=== PATIENT | male | born 1960 | race Caucasian/White ===

== ENCOUNTER 2022-11-13 04:12 | Emergency (ER) | payer OTHER ==
[~2022-11-13] VITALS: Ht 182.9 cm; Wt 68.8 kg
[2022-11-13] MEDS ORDERED: TIOT4MIS3 (04:44)
[2022-11-13] MEDS ORDERED: AMLO5TAB16 PO (04:44)
[2022-11-13] MEDS ORDERED: MOME220A5 (04:44)
[2022-11-13] MEDS ORDERED: PRED5TAB PO (04:44)
[2022-11-13] MEDS ORDERED: GUAI600T45 PO (04:44)
[2022-11-13] MEDS ORDERED: IPRA3AMP31 IH (04:44)
[2022-11-13] MEDS ORDERED: MELO-102 PO (04:44)
[2022-11-13] MEDS ORDERED: ROFL500T7 PO (04:44)
[2022-11-13] MEDS ORDERED: ALBU90AE INH (04:44)
[2022-11-13 04:53] LABS: ALANINE AMINOTRANSFERASE 52 U/L (12-78); ALBUMIN 3.5 G/DL (3.4-5.0); ALBUMIN/GLOBULIN RATIO 1.2 (1.1-1.5); ALKALINE PHOSPHATASE 114 IU/L (46-116); ANION GAP 8 (8-16); ASPARTATE AMINO TRANSFERASE 86 U/L (10-37); BLOOD UREA NITROGEN 18 MG/DL (7-18); BUN/CREATININE RATIO 19.6 (10.0-20.0); CALCIUM 8.8 MG/DL (8.5-10.1); CHLORIDE 106 MMOL/L (99-107); CREATININE 0.92 MG/DL (0.60-1.10); GLUCOSE 116 MG/DL (70-104); POTASSIUM 3.6 MMOL/L (3.5-5.1); SODIUM 142 MMOL/L (135-145); TOTAL PROTEIN 6.4 G/DL (6.4-8.2); eGFR 83 ML/MIN
[2022-11-13] MEDS ORDERED: methylPREDNISolone sod succ 125mg/2ml vial IV ONE (04:55)
[2022-11-13] MEDS ORDERED: ipratropium/albuterol 3ml nebule NEB ONE (04:55)
--- NOTE | 2022-11-13 05:13 | NUR ---
CRITICAL LAB- TROP 85. DR CHAUDHRY NOTIFIED
[2022-11-13 05:15] LABS: BASOPHILS % (AUTO) 0.2 % (0-1); EOSINOPHILS # (AUTO) 0.1 X10'3 (0-0.9); EOSINOPHILS % (AUTO) 0.9 % (0-6); HEMATOCRIT 48.6 % (42.0-52.0); HEMOGLOBIN 16.2 g/dl (14.0-17.9); LYMPHOCYTES # (AUTO) 1.4 X10'3 (1.1-4.8); MEAN CORPUSCULAR HEMOGLOBIN 32.5 PG (27.0-31.0); MEAN CORPUSCULAR HGB CONC 33.3 g/dL (33.0-36.5); MEAN CORPUSCULAR VOLUME 97.7 FL (78-98); MEAN PLATELET VOLUME 9.6 FL (7.4-10.4); MONOCYTES # (AUTO) 1.4 X10'3 (0-0.9); MONOCYTES % (AUTO) 11.1 % (2-12); NEUTROPHILS # (AUTO) 9.7 X10'3 (1.8-7.7); NEUTROPHILS % (AUTO) 76.8 % (42-75); PLATELET COUNT 136 X10'3 (140-440); RED BLOOD COUNT 4.97 X10'6 (4.70-6.10); RED CELL DISTRIBUTION WIDTH 16.2 % (11.5-14.5); WHITE BLOOD COUNT 12.7 X10'3 (4.5-11.0)
[2022-11-13] MEDS ORDERED: albuterol 2.5 MG/3 ML nebule NEB ONE (05:20)
[2022-11-13] MEDS ORDERED: levoFLOXACIN 250mg tablet PO ONE (06:10)
[2022-11-13] MEDS ORDERED: PRED20TA PO (06:13)
[2022-11-13] MEDS ORDERED: LEVO-65 PO (06:13)
[2022-11-13 06:17] VITALS: BP 96/68
== END 2022-11-13 06:19 | disposition home or self-care (01) ==
LOC: ER 04:13
DX: J44.9 Chronic obstructive pulmonary disease, unspecified (principal); J18.9 Pneumonia, unspecified organism; F17.200 Nicotine dependence, unspecified, uncomplicated; I10 Essential (primary) hypertension
CPT/HCPCS: 36415; 71045; 80053; 83880; 84145; 84484; 85025; 93005; 94640; 96374; 99285; J2930

== ENCOUNTER 2023-05-19 07:33 | Inpatient (IN) | payer OTHER ==
[~2023-05-19] VITALS: Ht 185.4 cm; Wt 70.9 kg
[~2023-05-19 07:33] MED LIST: ALBU90AE INH; AMLO5TAB16 PO; GUAI600T45 PO; IPRA3AMP31 IH; MELO-102 PO; MOME220A5; PRED5TAB PO; ROFL500T7 PO; TIOT4MIS3
[2023-05-19 08:02] LABS: BASOPHILS # (AUTO) 0.1 X10'3 (0-0.2); BASOPHILS % (AUTO) 1.1 % (0-1); EOSINOPHILS # (AUTO) 0.2 X10'3 (0-0.9); EOSINOPHILS % (AUTO) 4.1 % (0-6); HEMATOCRIT 52.2 % (42.0-52.0); HEMOGLOBIN 17.6 g/dl (14.0-17.9); LYMPHOCYTES # (AUTO) 2.2 X10'3 (1.1-4.8); LYMPHOCYTES % (AUTO) 35.4 % (21-51); MEAN CORPUSCULAR HEMOGLOBIN 33.1 PG (27.0-31.0); MEAN CORPUSCULAR HGB CONC 33.7 g/dL (33.0-36.5); MEAN CORPUSCULAR VOLUME 98.1 FL (78-98); MEAN PLATELET VOLUME 9.7 FL (7.4-10.4); MONOCYTES # (AUTO) 0.6 X10'3 (0-0.9); MONOCYTES % (AUTO) 9.9 % (2-12); NEUTROPHILS % (AUTO) 49.5 % (42-75); PLATELET COUNT 175 X10'3 (140-440); RED BLOOD COUNT 5.32 X10'6 (4.70-6.10); RED CELL DISTRIBUTION WIDTH 13.9 % (11.5-14.5); WHITE BLOOD COUNT 6.1 X10'3 (4.5-11.0)
[2023-05-19 08:52] LABS: ALANINE AMINOTRANSFERASE 23 U/L (12-78); ALBUMIN 3.6 G/DL (3.4-5.0); ALKALINE PHOSPHATASE 104 IU/L (46-116); ANION GAP 11 (8-16); ASPARTATE AMINO TRANSFERASE 17 U/L (10-37); BILIRUBIN,TOTAL 1.2 MG/DL (0.1-1.0); BLOOD UREA NITROGEN 12 MG/DL (7-18); BUN/CREATININE RATIO 14.5 (10.0-20.0); CALCIUM 8.8 MG/DL (8.5-10.1); CHLORIDE 108 MMOL/L (99-107); CREATININE 0.83 MG/DL (0.60-1.10); GLUCOSE 89 MG/DL (70-104); POTASSIUM 3.8 MMOL/L (3.5-5.1); SODIUM 144 MMOL/L (135-145); TOTAL CARBON DIOXIDE 25.4 MMOL/L (24-32); TOTAL PROTEIN 7.3 G/DL (6.4-8.2); eCRCL 91 ML/MIN; eGFR > 90 ML/MIN
[2023-05-19 08:56] LABS: PRO BRAIN NATRIURETIC PEPTIDE 80 PG/ML (0-125)
[2023-05-19] MEDS ORDERED: normal saline 1000ML IV soln IVB ONE (09:05)
[2023-05-19] MEDS ORDERED: methylPREDNISolone sod succ 125mg/2ml vial IV ONE (09:05)
[2023-05-19] MEDS ORDERED: CefTRIAXone 2gm/D5W 50ml BAG 50 ML IV ONE (09:05)
[2023-05-19] MEDS ORDERED: ipratropium 0.5 MG/2.5ML nebule IH ONE (09:05)
[2023-05-19] MEDS ORDERED: azithromycin/NS 500mg/250ml 250 ML IV ONE (09:12)
[2023-05-19] MEDS: albuterol 2.5 MG/3 ML nebule CONTNEB PRN ×2 (10:02→10:06)
[2023-05-19 10:08] VITALS: PULSE 72; RESP 20; O2SAT 95
[2023-05-19 12:25] LABS: ABG BASE EXCESS -4.2 mmol/L (-2.0-2.0); ABG HCO3 19.6 mmol/L (22.0-26.0); ABG OXYGEN SATURATION 91.5 % (94-97); ABG PCO2 (T) 33.2 mmHg (35.0-48.0); ALLEN'S TEST POSITIVE; FCOHb 3.2 % (0.0-3.9); FHHb 8.2 % (0.0-5.0); FLOW 2 L/min; FMetHb 0.4 % (0.0-1.5); FO2Hb 88.2 % (94-97); MODE NASAL CANNULA; TOTAL HEMOGLOBIN 17.1 G/dl (14.0-17.9)
[2023-05-19] MEDS ORDERED: acetaminophen 650mg rectal suppository RC PRN (18:00)
[2023-05-19] MEDS ORDERED: magnesium 4gm in 100ml NS 100 ML IV PRN (18:00)
[2023-05-19] MEDS ORDERED: diphenhydrAMINE 25mg capsule PO PRN (18:00)
[2023-05-19] MEDS ORDERED: HYDROcodone/acetaminophen 10/325mg tab PO PRN (18:00)
[2023-05-19] MEDS ORDERED: acetaminophen 325mg tablet PO PRN ×2 (18:00)
[2023-05-19] MEDS ORDERED: potassium Cl 20 mEq SR tablet PO PRN ×2 (18:00)
[2023-05-19] MEDS ORDERED: ondansetron/PF 4mg/2ml inj IV PRN (18:00)
[2023-05-19] MEDS ORDERED: magnesium Cl slow-release 64mg tablet PO PRN (18:00)
[2023-05-19] MEDS ORDERED: ipratropium/albuterol 3ml nebule NEB PRN (18:00)
[2023-05-19] MEDS ORDERED: bisacodyl 10mg suppository rectal RC PRN (18:00)
[2023-05-19] MEDS ORDERED: mag hydrox/Alum hydrox/simeth 30ml oral suspension PO PRN (18:00)
[2023-05-19] MEDS ORDERED: HYDROcodone/acetaminophen 5mg/325mg tablet PO PRN (18:00)
[2023-05-19] MEDS ORDERED: morphine 2 MG/ML inj. syringe IV PRN ×2 (18:00)
[2023-05-19] MEDS ORDERED: magnesium 2GM in 50ml NS 50 ML IV PRN (18:00)
[2023-05-19] MEDS ORDERED: potassium Cl 40MEQ/1/2NS 520ml 520 ML IV PRN (18:00)
[2023-05-19] MEDS ORDERED: magnesium hydroxide 30ml (MOM) UD suspension PO PRN (18:00)
[2023-05-19] MEDS ORDERED: PERFLUTREN PROTEIN-A MICROSPHR (Optison) 0.22 MG/ML 3ML VIAL IV ONE (18:00)
[2023-05-19 18:40] LABS: HEMOGLOBIN A1C 5.1 % (4.5-6.2)
[2023-05-19] MEDS: normal saline 1000ml 1,000 ML IV SCH (18:45)
[2023-05-19] MEDS: ipratropium/albuterol 3ml nebule NEB SCH ×2 (18:53→23:01)
[2023-05-19 18:55] VITALS: PULSE 101; RESP 18; O2SAT 96
[2023-05-19 19:00] LABS: BILIRUBIN,URINE NEGATIVE (Neg); COLOR,URINE YELLOW (Yellow); GLUCOSE, URINE NEGATIVE (Neg); KETONES,URINE NEGATIVE (Neg); LEUKOCYTE ESTERASE ,URINE NEGATIVE (Neg); NITRITES, URINE NEGATIVE (Neg); OCCULT BLOOD,URINE NEGATIVE (Neg); PH,URINE 5.5 (4.8-8.0); PROTEIN,URINE NEGATIVE (Neg); UROBILINOGEN,URINE 0.2 E.U/dL (0.2-1.0)
[2023-05-19 19:01] VITALS: PULSE 110; RESP 18
[2023-05-19 19:15] LABS: UA COLLECTION TYPE CLN CATCH MIDSTREAM
[2023-05-19 19:16] LABS: CLARITY,URINE SLIGHTLY CLOUDY (Clear)
[2023-05-19 19:17] LABS: BACTERIA,URINE FEW /HPF (Neg); MUCUS STRANDS NONE SEEN /LPF (Neg); RBC,URINE 0-2 /HPF (0-2); SQUAMOUS EPITHELIAL CELL,UR NONE SEEN /LPF (FEW)
[2023-05-19] MEDS: K and/or MAG REPLACEMENT MC SCH (20:00)
[2023-05-19] MEDS: methylPREDNISolone sod succ 125mg/2ml vial IV SCH (20:25)
[2023-05-19] MEDS: docusate sod 100mg capsule PO SCH (20:25)
[2023-05-19] MEDS: heparin, porcine 5000 units/ml vial SQ SCH (20:26)
[2023-05-19 22:00] VITALS: BP 110/79; PULSE 85; RESP 13; TEMP 99.1; O2SAT 98
[2023-05-19 23:03] VITALS: PULSE 97; RESP 16; O2SAT 91
[2023-05-19 23:08] VITALS: PULSE 100; RESP 18
[2023-05-20] VITALS (21 sets, daily range): BP systolic 109–115; BP diastolic 59–77; PULSE 79–99; RESP 15–22; TEMP 97.2–98.6; O2SAT 90–100
[2023-05-20] MEDS: ipratropium/albuterol 3ml nebule NEB SCH ×6 (03:13→22:50)
[2023-05-20] MEDS: normal saline 1000ml 1,000 ML IV SCH (03:21)
[2023-05-20] MEDS: methylPREDNISolone sod succ 125mg/2ml vial IV SCH ×4 (03:21→20:49)
[2023-05-20] MEDS: CefTRIAXone/D5W-Rocephin 1gm 50 ML IV SCH (07:48)
[2023-05-20] MEDS: K and/or MAG REPLACEMENT MC SCH ×2 (08:00→20:00)
[2023-05-20] MEDS: heparin, porcine 5000 units/ml vial SQ SCH ×2 (08:00→19:50)
[2023-05-20] MEDS: azithromycin 250mg tablet PO SCH (09:14)
[2023-05-20] MEDS: roflumilast 500mcg tablet PO SCH (09:14)
[2023-05-20] MEDS: guaiFENesin ER 600mg tablet PO SCH ×2 (09:15→19:50)
[2023-05-20] MEDS: docusate sod 100mg capsule PO SCH ×2 (09:16→19:49)
[2023-05-20] MEDS: amLODIPine 5mg tablet PO SCH (09:16)
[2023-05-20 09:28] LABS: ALANINE AMINOTRANSFERASE 19 U/L (12-78); ALBUMIN 3.2 G/DL (3.4-5.0); ALKALINE PHOSPHATASE 90 IU/L (46-116); ANION GAP 7 (8-16); ASPARTATE AMINO TRANSFERASE 22 U/L (10-37); BILIRUBIN,TOTAL 1.5 MG/DL (0.1-1.0); BLOOD UREA NITROGEN 17 MG/DL (7-18); BUN/CREATININE RATIO 26.6 (10.0-20.0); CALCIUM 8.8 MG/DL (8.5-10.1); CHLORIDE 105 MMOL/L (99-107); CHOL/HDL RATIO 2.2 (0.00-4.99); CHOLESTEROL 153 MG/DL (0-200); CREATININE 0.64 MG/DL (0.60-1.10); GLUCOSE 150 MG/DL (70-104); HDL CHOLESTEROL 71 MG/DL (35-60); LDL CHOLESTEROL 72 MG/DL (50-100); MAGNESIUM 1.9 MG/DL (1.5-2.4); PHOSPHORUS 2.7 MG/DL (2.3-4.5); POTASSIUM 3.7 MMOL/L (3.5-5.1); SODIUM 138 MMOL/L (135-145); TOTAL CARBON DIOXIDE 26.1 MMOL/L (24-32); TOTAL PROTEIN 6.5 G/DL (6.4-8.2); TRIGLYCERIDES 43 MG/DL (20-135); eCRCL 118 ML/MIN; eGFR > 90 ML/MIN
[2023-05-20 09:30] LABS: BASOPHILS % (AUTO) 0.1 % (0-1); EOSINOPHILS % (AUTO) 0 % (0-6); HEMATOCRIT 47.9 % (42.0-52.0); HEMOGLOBIN 16.2 g/dl (14.0-17.9); LYMPHOCYTES # (AUTO) 0.4 X10'3 (1.1-4.8); LYMPHOCYTES % (AUTO) 5.5 % (21-51); MEAN CORPUSCULAR HGB CONC 33.8 g/dL (33.0-36.5); MEAN CORPUSCULAR VOLUME 97.5 FL (78-98); MONOCYTES # (AUTO) 0.3 X10'3 (0-0.9); MONOCYTES % (AUTO) 3.6 % (2-12); NEUTROPHILS # (AUTO) 7.1 X10'3 (1.8-7.7); NEUTROPHILS % (AUTO) 90.8 % (42-75); PLATELET COUNT 140 X10'3 (140-440); RED BLOOD COUNT 4.91 X10'6 (4.70-6.10); RED CELL DISTRIBUTION WIDTH 13.5 % (11.5-14.5); WHITE BLOOD COUNT 7.8 X10'3 (4.5-11.0)
[2023-05-20] MEDS: nicotine 14mg patch - 24hr TD SCH (12:00)
[2023-05-20] MEDS: lactose-reduced food (Ensure Enlive) - 237ml bottle PO SCH (18:00)
[2023-05-21] VITALS (20 sets, daily range): BP systolic 107–140; BP diastolic 70–84; PULSE 56–110; RESP 12–25; TEMP 97.9–98.2; O2SAT 90–100
[2023-05-21] MEDS: methylPREDNISolone sod succ 125mg/2ml vial IV SCH ×2 (02:06→08:00)
[2023-05-21] MEDS: ipratropium/albuterol 3ml nebule NEB SCH ×6 (03:09→22:53)
[2023-05-21 06:54] LABS: ALANINE AMINOTRANSFERASE 17 U/L (12-78); ALBUMIN 2.9 G/DL (3.4-5.0); ALBUMIN/GLOBULIN RATIO 0.9 (1.1-1.5); ALKALINE PHOSPHATASE 78 IU/L (46-116); ANION GAP 8 (8-16); ASPARTATE AMINO TRANSFERASE 14 U/L (10-37); BILIRUBIN,TOTAL 1.1 MG/DL (0.1-1.0); BLOOD UREA NITROGEN 21 MG/DL (7-18); BUN/CREATININE RATIO 28.4 (10.0-20.0); CALCIUM 8.6 MG/DL (8.5-10.1); CHLORIDE 106 MMOL/L (99-107); CREATININE 0.74 MG/DL (0.60-1.10); GLUCOSE 157 MG/DL (70-104); MAGNESIUM 2.2 MG/DL (1.5-2.4); PHOSPHORUS 3.3 MG/DL (2.3-4.5); POTASSIUM 3.8 MMOL/L (3.5-5.1); SODIUM 139 MMOL/L (135-145); TOTAL CARBON DIOXIDE 24.6 MMOL/L (24-32); eCRCL 102 ML/MIN; eGFR > 90 ML/MIN
[2023-05-21 07:04] LABS: BASOPHILS % (AUTO) 0 % (0-1); EOSINOPHILS % (AUTO) 0 % (0-6); HEMATOCRIT 45.3 % (42.0-52.0); HEMOGLOBIN 15.3 g/dl (14.0-17.9); LYMPHOCYTES # (AUTO) 0.3 X10'3 (1.1-4.8); LYMPHOCYTES % (AUTO) 3.2 % (21-51); MEAN CORPUSCULAR HGB CONC 33.8 g/dL (33.0-36.5); MEAN CORPUSCULAR VOLUME 97.5 FL (78-98); MEAN PLATELET VOLUME 10.3 FL (7.4-10.4); MONOCYTES # (AUTO) 0.3 X10'3 (0-0.9); MONOCYTES % (AUTO) 3.5 % (2-12); NEUTROPHILS % (AUTO) 93.3 % (42-75); PLATELET COUNT 131 X10'3 (140-440); RED BLOOD COUNT 4.65 X10'6 (4.70-6.10); RED CELL DISTRIBUTION WIDTH 13.7 % (11.5-14.5); WHITE BLOOD COUNT 8.5 X10'3 (4.5-11.0)
[2023-05-21] MEDS: guaiFENesin ER 600mg tablet PO SCH ×2 (07:57→20:16)
[2023-05-21] MEDS: roflumilast 500mcg tablet PO SCH (07:57)
[2023-05-21] MEDS: CefTRIAXone/D5W-Rocephin 1gm 50 ML IV SCH (07:58)
[2023-05-21] MEDS: azithromycin 250mg tablet PO SCH (07:58)
[2023-05-21] MEDS: docusate sod 100mg capsule PO SCH ×2 (07:58→20:00)
[2023-05-21] MEDS: K and/or MAG REPLACEMENT MC SCH ×2 (08:00→20:00)
[2023-05-21] MEDS: amLODIPine 5mg tablet PO SCH (08:00)
[2023-05-21] MEDS: nicotine 14mg patch - 24hr TD SCH (08:02)
[2023-05-21] MEDS: heparin, porcine 5000 units/ml vial SQ SCH ×2 (08:04→20:16)
[2023-05-21] MEDS: lactose-reduced food (Ensure Enlive) - 237ml bottle PO SCH ×3 (08:13→18:00)
[2023-05-21] MEDS ORDERED: methylPREDNISolone sod succ/PF 40mg inj. IV SCH (09:00)
[2023-05-21] MEDS: methylPREDNISolone sod succ/PF 40mg inj. IV SCH (16:37)
[2023-05-22] VITALS (18 sets, daily range): BP systolic 95–121; BP diastolic 60–78; PULSE 69–89; RESP 14–18; TEMP 97.4–98.6; O2SAT 93–97
[2023-05-22] MEDS: methylPREDNISolone sod succ/PF 40mg inj. IV SCH ×3 (00:13→16:39)
[2023-05-22] MEDS: ipratropium/albuterol 3ml nebule NEB SCH ×6 (02:59→22:50)
[2023-05-22 06:27] LABS: BASOPHILS % (AUTO) 0.1 % (0-1); EOSINOPHILS % (AUTO) 0 % (0-6); HEMATOCRIT 45.9 % (42.0-52.0); HEMOGLOBIN 15.5 g/dl (14.0-17.9); LYMPHOCYTES # (AUTO) 0.3 X10'3 (1.1-4.8); LYMPHOCYTES % (AUTO) 4.1 % (21-51); MEAN CORPUSCULAR HEMOGLOBIN 33.1 PG (27.0-31.0); MEAN CORPUSCULAR HGB CONC 33.8 g/dL (33.0-36.5); MEAN PLATELET VOLUME 10.1 FL (7.4-10.4); MONOCYTES # (AUTO) 0.5 X10'3 (0-0.9); NEUTROPHILS # (AUTO) 6.7 X10'3 (1.8-7.7); NEUTROPHILS % (AUTO) 89.8 % (42-75); PLATELET COUNT 124 X10'3 (140-440); RED BLOOD COUNT 4.69 X10'6 (4.70-6.10); RED CELL DISTRIBUTION WIDTH 13.7 % (11.5-14.5); WHITE BLOOD COUNT 7.5 X10'3 (4.5-11.0)
[2023-05-22 07:08] LABS: ALANINE AMINOTRANSFERASE 18 U/L (12-78); ALBUMIN 2.9 G/DL (3.4-5.0); ALKALINE PHOSPHATASE 64 IU/L (46-116); ANION GAP 9 (8-16); ASPARTATE AMINO TRANSFERASE 8 U/L (10-37); BILIRUBIN,TOTAL 0.9 MG/DL (0.1-1.0); BLOOD UREA NITROGEN 19 MG/DL (7-18); BUN/CREATININE RATIO 31.1 (10.0-20.0); CALCIUM 8.5 MG/DL (8.5-10.1); CHLORIDE 105 MMOL/L (99-107); CREATININE 0.61 MG/DL (0.60-1.10); GLUCOSE 125 MG/DL (70-104); MAGNESIUM 2.4 MG/DL (1.5-2.4); PHOSPHORUS 3.5 MG/DL (2.3-4.5); POTASSIUM 4.3 MMOL/L (3.5-5.1); SODIUM 138 MMOL/L (135-145); TOTAL PROTEIN 5.8 G/DL (6.4-8.2); eCRCL 124 ML/MIN; eGFR > 90 ML/MIN
[2023-05-22] MEDS: K and/or MAG REPLACEMENT MC SCH ×2 (08:00→19:33)
[2023-05-22] MEDS: docusate sod 100mg capsule PO SCH ×2 (08:26→19:35)
[2023-05-22] MEDS: guaiFENesin ER 600mg tablet PO SCH ×2 (08:27→19:38)
[2023-05-22] MEDS: azithromycin 250mg tablet PO SCH (08:27)
[2023-05-22] MEDS: roflumilast 500mcg tablet PO SCH (08:27)
[2023-05-22] MEDS: heparin, porcine 5000 units/ml vial SQ SCH ×2 (08:28→19:38)
[2023-05-22] MEDS: amLODIPine 5mg tablet PO SCH (08:28)
[2023-05-22] MEDS: CefTRIAXone/D5W-Rocephin 1gm 50 ML IV SCH (08:28)
[2023-05-22] MEDS: nicotine 14mg patch - 24hr TD SCH (08:30)
[2023-05-22] MEDS: lactose-reduced food (Ensure Enlive) - 237ml bottle PO SCH ×3 (08:39→18:00)
[2023-05-22] MEDS ORDERED: PRED10TA23 PO (12:10)
[2023-05-22] MEDS ORDERED: ALBU90AE INH (12:10)
[2023-05-23] VITALS (8 sets, daily range): BP systolic 109–118; BP diastolic 71–75; PULSE 69–88; RESP 16–23; TEMP 97–97.4; O2SAT 96–97
[2023-05-23] MEDS: methylPREDNISolone sod succ/PF 40mg inj. IV SCH (00:27)
[2023-05-23] MEDS: ipratropium/albuterol 3ml nebule NEB SCH ×3 (02:42→10:37)
[2023-05-23 06:28] LABS: BASOPHILS % (AUTO) 0.1 % (0-1); EOSINOPHILS % (AUTO) 0 % (0-6); HEMATOCRIT 47.9 % (42.0-52.0); HEMOGLOBIN 16.1 g/dl (14.0-17.9); LYMPHOCYTES # (AUTO) 0.4 X10'3 (1.1-4.8); LYMPHOCYTES % (AUTO) 5.9 % (21-51); MEAN CORPUSCULAR HEMOGLOBIN 33.2 PG (27.0-31.0); MEAN CORPUSCULAR HGB CONC 33.5 g/dL (33.0-36.5); MEAN CORPUSCULAR VOLUME 98.8 FL (78-98); MEAN PLATELET VOLUME 10.3 FL (7.4-10.4); MONOCYTES # (AUTO) 0.5 X10'3 (0-0.9); MONOCYTES % (AUTO) 7.5 % (2-12); NEUTROPHILS # (AUTO) 5.7 X10'3 (1.8-7.7); NEUTROPHILS % (AUTO) 86.5 % (42-75); PLATELET COUNT 124 X10'3 (140-440); RED BLOOD COUNT 4.85 X10'6 (4.70-6.10); RED CELL DISTRIBUTION WIDTH 13.9 % (11.5-14.5); WHITE BLOOD COUNT 6.6 X10'3 (4.5-11.0)
[2023-05-23 07:03] LABS: ALANINE AMINOTRANSFERASE 27 U/L (12-78); ALKALINE PHOSPHATASE 69 IU/L (46-116); ANION GAP 8 (8-16); ASPARTATE AMINO TRANSFERASE 15 U/L (10-37); BILIRUBIN,TOTAL 0.9 MG/DL (0.1-1.0); BLOOD UREA NITROGEN 19 MG/DL (7-18); BUN/CREATININE RATIO 31.7 (10.0-20.0); CALCIUM 8.7 MG/DL (8.5-10.1); CHLORIDE 103 MMOL/L (99-107); GLUCOSE 123 MG/DL (70-104); MAGNESIUM 2.2 MG/DL (1.5-2.4); PHOSPHORUS 3.9 MG/DL (2.3-4.5); POTASSIUM 4.5 MMOL/L (3.5-5.1); SODIUM 137 MMOL/L (135-145); TOTAL CARBON DIOXIDE 26.5 MMOL/L (24-32); TOTAL PROTEIN 6.1 G/DL (6.4-8.2); eCRCL 126 ML/MIN; eGFR > 90 ML/MIN
[2023-05-23] MEDS: azithromycin 250mg tablet PO SCH (07:53)
[2023-05-23] MEDS: docusate sod 100mg capsule PO SCH (07:53)
[2023-05-23] MEDS: guaiFENesin ER 600mg tablet PO SCH (07:53)
[2023-05-23] MEDS: amLODIPine 5mg tablet PO SCH (07:54)
[2023-05-23] MEDS: roflumilast 500mcg tablet PO SCH (07:54)
[2023-05-23] MEDS: nicotine 14mg patch - 24hr TD SCH (07:55)
[2023-05-23] MEDS: CefTRIAXone/D5W-Rocephin 1gm 50 ML IV SCH (07:55)
[2023-05-23] MEDS: heparin, porcine 5000 units/ml vial SQ SCH (07:59)
[2023-05-23] MEDS ORDERED: methylPREDNISolone sod succ/PF 40mg inj. IV SCH (08:00)
[2023-05-23] MEDS: K and/or MAG REPLACEMENT MC SCH (08:00)
[2023-05-23] MEDS: lactose-reduced food (Ensure Enlive) - 237ml bottle PO SCH ×2 (08:04→13:00)
[2023-05-23] MEDS ORDERED: CEFD300C3 PO (12:03)
[2023-05-23] MEDS ORDERED: LACT1CAP26 PO (12:04)
== END 2023-05-23 13:30 | disposition home or self-care (01) | DRG 189 ==
LOC: ER 07:34 → ED HOLD 13:22 → PCU 3S 22:05
PROVIDERS: ADMIT Family Medicine; ATTEND Family Medicine
DX: J96.21 Acute and chronic respiratory failure with hypoxia (principal); J44.1 Chronic obstructive pulmonary disease with (acute) exacerbation; J44.0 Chronic obstructive pulmonary disease with (acute) lower respiratory infection; E87.20 Acidosis, unspecified; F17.210 Nicotine dependence, cigarettes, uncomplicated; I10 Essential (primary) hypertension; J20.9 Acute bronchitis, unspecified; Z79.899 Other long term (current) drug therapy
CPT/HCPCS: 36415; 36600; 71045; 80053; 80061; 81001; 82803; 83036; 83605; 83735; 83880; 84100; 84484; 85018; 85025; 87040; 87088; 87502; 87503; 93306; 94640; 94760; 97116; 97161; 97530; 99285; A4615; A6250; A7015; G0378; J0456; J0696; J1644; J2920; J2930; J7030

== ENCOUNTER 2023-08-31 15:20 | Emergency (ER) | payer OTHER ==
[~2023-08-31] VITALS: Ht 182.9 cm; Wt 72.7 kg
[~2023-08-31 15:20] MED LIST changes: +LACT1CAP26 PO
[2023-08-31 15:48] LABS: BASOPHILS % (AUTO) 0.2 % (0-1); EOSINOPHILS % (AUTO) 0.2 % (0-6); HEMATOCRIT 53.4 % (42.0-52.0); LYMPHOCYTES # (AUTO) 0.6 X10'3 (1.1-4.8); LYMPHOCYTES % (AUTO) 6.5 % (21-51); MEAN CORPUSCULAR HEMOGLOBIN 33.2 PG (27.0-31.0); MEAN CORPUSCULAR HGB CONC 34.2 g/dL (33.0-36.5); MEAN CORPUSCULAR VOLUME 97.2 FL (78-98); MEAN PLATELET VOLUME 9.8 FL (7.4-10.4); MONOCYTES # (AUTO) 0.4 X10'3 (0-0.9); MONOCYTES % (AUTO) 3.9 % (2-12); NEUTROPHILS # (AUTO) 8.6 X10'3 (1.8-7.7); NEUTROPHILS % (AUTO) 89.2 % (42-75); PLATELET COUNT 168 X10'3 (140-440); RED BLOOD COUNT 5.49 X10'6 (4.70-6.10); RED CELL DISTRIBUTION WIDTH 14.8 % (11.5-14.5); WHITE BLOOD COUNT 9.6 X10'3 (4.5-11.0)
[2023-08-31 15:54] LABS: HEMOGLOBIN 18.2 g/dl (14.0-17.9)
[2023-08-31 15:56] VITALS: TEMP 98.6
[2023-08-31] MEDS: ipratropium/albuterol 3ml nebule NEB ONE (15:56)
[2023-08-31 16:00] VITALS: PULSE 105; RESP 23; O2SAT 92
[2023-08-31] MEDS: methylPREDNISolone sod succ 125mg/2ml vial IV ONE (16:04)
[2023-08-31 16:06] VITALS: PULSE 107; RESP 16; O2SAT 95
[2023-08-31 16:06] LABS: ALANINE AMINOTRANSFERASE 18 U/L (12-78); ALBUMIN 3.9 G/DL (3.4-5.0); ALBUMIN/GLOBULIN RATIO 1.2 (1.1-1.5); ALKALINE PHOSPHATASE 106 IU/L (46-116); ANION GAP 11 (8-16); ASPARTATE AMINO TRANSFERASE 18 U/L (10-37); BILIRUBIN,TOTAL 1.2 MG/DL (0.1-1.0); BLOOD UREA NITROGEN 12 MG/DL (7-18); BUN/CREATININE RATIO 13.3 (10.0-20.0); CHLORIDE 108 MMOL/L (99-107); GLUCOSE 119 MG/DL (70-104); POTASSIUM 4.6 MMOL/L (3.5-5.1); SODIUM 145 MMOL/L (135-145); TOTAL CARBON DIOXIDE 25.9 MMOL/L (24-32); TOTAL PROTEIN 7.1 G/DL (6.4-8.2); eCRCL 86 ML/MIN; eGFR 85 ML/MIN
[2023-08-31] MEDS: magnesium 2GM in 50ml NS 50 ML IV ONE (16:06)
[2023-08-31 16:13] LABS: PRO BRAIN NATRIURETIC PEPTIDE 116 PG/ML (0-125)
[2023-08-31] MEDS ORDERED: PRED20TA PO (20:47)
[2023-08-31] MEDS ORDERED: AZIT-164 PO (20:49)
[2023-08-31 21:11] VITALS: BP 116/86; PULSE 95; RESP 20; O2SAT 94
== END 2023-08-31 21:12 | disposition home or self-care (01) ==
LOC: ER 15:21
DX: R06.02 Shortness of breath (principal); R09.02 Hypoxemia; I10 Essential (primary) hypertension; J44.9 Chronic obstructive pulmonary disease, unspecified; F17.200 Nicotine dependence, unspecified, uncomplicated; Z79.899 Other long term (current) drug therapy; Z79.2 Long term (current) use of antibiotics
CPT/HCPCS: 36415; 71045; 80053; 83880; 84484; 85025; 93005; 94640; 96365; 96375; 99285; J2930; J3475; 94760; 99291; 99292; A4615

== ENCOUNTER 2023-09-28 07:36 | Inpatient (IN) | payer OTHER ==
[2023-09-28] VITALS (17 sets, daily range): BP systolic 113–138; BP diastolic 67–93; PULSE 80–110; RESP 15–22; TEMP 97.5–98.2; O2SAT 89–95
[~2023-09-28] VITALS: Ht 182.9 cm; Wt 72.0 kg
[~2023-09-28 07:36] MED LIST changes: +PRED20TA PO
[2023-09-28 08:01] LABS: BASOPHILS % (AUTO) 0.6 % (0-1); EOSINOPHILS # (AUTO) 0.2 X10'3 (0-0.9); EOSINOPHILS % (AUTO) 3.2 % (0-6); HEMATOCRIT 52.9 % (42.0-52.0); LYMPHOCYTES # (AUTO) 2.3 X10'3 (1.1-4.8); LYMPHOCYTES % (AUTO) 29.9 % (21-51); MEAN CORPUSCULAR HEMOGLOBIN 33.2 PG (27.0-31.0); MEAN CORPUSCULAR HGB CONC 34.1 g/dL (33.0-36.5); MEAN CORPUSCULAR VOLUME 97.4 FL (78-98); MONOCYTES # (AUTO) 0.8 X10'3 (0-0.9); NEUTROPHILS # (AUTO) 4.2 X10'3 (1.8-7.7); NEUTROPHILS % (AUTO) 56.3 % (42-75); PLATELET COUNT 184 X10'3 (140-440); RED BLOOD COUNT 5.44 X10'6 (4.70-6.10); WHITE BLOOD COUNT 7.5 X10'3 (4.5-11.0)
[2023-09-28] MEDS: ipratropium/albuterol 3ml nebule NEB STA (08:18)
[2023-09-28] MEDS: methylPREDNISolone sod succ 125mg/2ml vial IV ONE (08:31)
[2023-09-28] MEDS: normal saline 500ml IV soln 500 ML IV ONE (08:35)
[2023-09-28] MEDS: azithromycin/NS 500mg/250ml 250 ML IV ONE (08:44)
[2023-09-28 08:45] LABS: ALBUMIN 3.6 G/DL (3.4-5.0); ANION GAP 11 (8-16); BLOOD UREA NITROGEN 15 MG/DL (7-18); BUN/CREATININE RATIO 17.2 (10.0-20.0); CALCIUM 8.7 MG/DL (8.5-10.1); CHLORIDE 107 MMOL/L (99-107); CREATININE 0.87 MG/DL (0.60-1.10); GLUCOSE 87 MG/DL (70-104); PRO BRAIN NATRIURETIC PEPTIDE 46 PG/ML (0-125); SODIUM 145 MMOL/L (135-145); TOTAL CARBON DIOXIDE 27.2 MMOL/L (24-32); eCRCL 89 ML/MIN; eGFR 89 ML/MIN
[2023-09-28] MEDS: ipratropium/albuterol 3ml nebule NEB ONE (09:45)
[2023-09-28] MEDS ORDERED: potassium Cl 20 mEq SR tablet PO PRN ×2 (10:10)
[2023-09-28] MEDS ORDERED: magnesium 2GM in 50ml NS 50 ML IV PRN (10:10)
[2023-09-28] MEDS ORDERED: magnesium Cl slow-release 64mg tablet PO PRN (10:10)
[2023-09-28] MEDS ORDERED: ondansetron/PF 4mg/2ml inj IV PRN (10:10)
[2023-09-28] MEDS ORDERED: acetaminophen 325mg tablet PO PRN (10:10)
[2023-09-28] MEDS ORDERED: magnesium hydroxide 30ml (MOM) UD suspension PO PRN (10:10)
[2023-09-28] MEDS ORDERED: magnesium 4gm in 100ml NS 100 ML IV PRN (10:10)
[2023-09-28] MEDS ORDERED: mag hydrox/Alum hydrox/simeth 30ml oral suspension PO PRN (10:10)
[2023-09-28] MEDS ORDERED: potassium Cl 40MEQ/1/2NS 520ml 520 ML IV PRN (10:10)
[2023-09-28] MEDS: nicotine 14mg patch - 24hr TD ONE (12:13)
[2023-09-28] MEDS: albuterol 2.5 MG/3 ML nebule NEB PRN (12:23)
[2023-09-28] MEDS: CefTRIAXone/D5W-Rocephin 1gm 50 ML IV SCH (13:00)
[2023-09-28] MEDS: nystatin 500,000 unit/5ML UD oral suspension PO SCH (13:00)
[2023-09-28] MEDS ORDERED: LORazepam 2 mg/ml vial IV PRN (18:55)
[2023-09-28] MEDS ORDERED: LORazepam 0.5 MG tablet PO PRN (18:55)
[2023-09-28] MEDS: K and/or MAG REPLACEMENT MC SCH (20:00)
[2023-09-28] MEDS: heparin, porcine 5000 units/ml vial SQ SCH (20:42)
[2023-09-28] MEDS: guaiFENesin ER 600mg tablet PO SCH (20:43)
[2023-09-28] MEDS: methylPREDNISolone sod succ 125mg/2ml vial IV SCH (20:43)
[2023-09-29] VITALS (13 sets, daily range): BP systolic 117–125; BP diastolic 80–82; PULSE 75–104; RESP 16–22; TEMP 97.5–98.5; O2SAT 87–94
[2023-09-29 06:34] LABS: BASOPHILS % (AUTO) 0.1 % (0-1); EOSINOPHILS % (AUTO) 0 % (0-6); HEMATOCRIT 47.7 % (42.0-52.0); HEMOGLOBIN 16.4 g/dl (14.0-17.9); LYMPHOCYTES # (AUTO) 0.6 X10'3 (1.1-4.8); LYMPHOCYTES % (AUTO) 9.5 % (21-51); MEAN CORPUSCULAR HEMOGLOBIN 33.1 PG (27.0-31.0); MEAN CORPUSCULAR HGB CONC 34.4 g/dL (33.0-36.5); MEAN CORPUSCULAR VOLUME 96.3 FL (78-98); MEAN PLATELET VOLUME 9.8 FL (7.4-10.4); MONOCYTES # (AUTO) 0.3 X10'3 (0-0.9); MONOCYTES % (AUTO) 4.2 % (2-12); NEUTROPHILS # (AUTO) 5.5 X10'3 (1.8-7.7); NEUTROPHILS % (AUTO) 86.2 % (42-75); PLATELET COUNT 138 X10'3 (140-440); RED BLOOD COUNT 4.96 X10'6 (4.70-6.10); RED CELL DISTRIBUTION WIDTH 13.7 % (11.5-14.5); WHITE BLOOD COUNT 6.3 X10'3 (4.5-11.0)
[2023-09-29 06:47] LABS: ANION GAP 9 (8-16); BLOOD UREA NITROGEN 22 MG/DL (7-18); BUN/CREATININE RATIO 30.1 (10.0-20.0); CHLORIDE 105 MMOL/L (99-107); CREATININE 0.73 MG/DL (0.60-1.10); GLUCOSE 146 MG/DL (70-104); POTASSIUM 3.8 MMOL/L (3.5-5.1); SODIUM 139 MMOL/L (135-145); TOTAL CARBON DIOXIDE 24.9 MMOL/L (24-32)
[2023-09-29 06:48] LABS: ALBUMIN 3.1 G/DL (3.4-5.0); CALCIUM 8.6 MG/DL (8.5-10.1); PHOSPHORUS 3.2 MG/DL (2.3-4.5); eCRCL 105 ML/MIN; eGFR > 90 ML/MIN
[2023-09-29] MEDS: amLODIPine 5mg tablet PO SCH (08:24)
[2023-09-30] VITALS (7 sets, daily range): BP systolic 117; BP diastolic 74; PULSE 71–88; RESP 18–22; TEMP 97.8; O2SAT 85–92
[2023-09-30 07:36] LABS: BASOPHILS % (AUTO) 0.1 % (0-1); EOSINOPHILS % (AUTO) 0 % (0-6); HEMATOCRIT 46.4 % (42.0-52.0); HEMOGLOBIN 15.8 g/dl (14.0-17.9); LYMPHOCYTES # (AUTO) 0.3 X10'3 (1.1-4.8); MEAN CORPUSCULAR HEMOGLOBIN 32.8 PG (27.0-31.0); MEAN CORPUSCULAR HGB CONC 34.1 g/dL (33.0-36.5); MEAN CORPUSCULAR VOLUME 96.1 FL (78-98); MEAN PLATELET VOLUME 9.6 FL (7.4-10.4); MONOCYTES # (AUTO) 0.5 X10'3 (0-0.9); MONOCYTES % (AUTO) 6.7 % (2-12); NEUTROPHILS # (AUTO) 6.9 X10'3 (1.8-7.7); NEUTROPHILS % (AUTO) 89.2 % (42-75); PLATELET COUNT 123 X10'3 (140-440); RED BLOOD COUNT 4.82 X10'6 (4.70-6.10); RED CELL DISTRIBUTION WIDTH 13.5 % (11.5-14.5); WHITE BLOOD COUNT 7.8 X10'3 (4.5-11.0)
[2023-09-30 07:48] LABS: ALBUMIN 2.9 G/DL (3.4-5.0); ANION GAP 7 (8-16); BLOOD UREA NITROGEN 22 MG/DL (7-18); BUN/CREATININE RATIO 32.4 (10.0-20.0); CALCIUM 8.3 MG/DL (8.5-10.1); CHLORIDE 107 MMOL/L (99-107); CREATININE 0.68 MG/DL (0.60-1.10); GLUCOSE 139 MG/DL (70-104); MAGNESIUM 2.1 MG/DL (1.5-2.4); PHOSPHORUS 3.2 MG/DL (2.3-4.5); POTASSIUM 3.9 MMOL/L (3.5-5.1); SODIUM 140 MMOL/L (135-145); TOTAL CARBON DIOXIDE 26.5 MMOL/L (24-32); eCRCL 113 ML/MIN; eGFR > 90 ML/MIN
[2023-09-30] MEDS ORDERED: CEFD300C3 PO (10:07)
[2023-09-30] MEDS ORDERED: PRED20TA PO (10:07)
== END 2023-09-30 11:30 | disposition home or self-care (01) | DRG 189 ==
LOC: ER 07:36 → ED HOLD 10:09 → ORTHO 4S 18:45
PROVIDERS: ADMIT Internal Medicine; ATTEND Internal Medicine
DX: J96.20 Acute and chronic respiratory failure, unspecified whether with hypoxia or hypercapnia (principal); J44.1 Chronic obstructive pulmonary disease with (acute) exacerbation; F17.210 Nicotine dependence, cigarettes, uncomplicated; F10.90 Alcohol use, unspecified, uncomplicated; I10 Essential (primary) hypertension; Z20.822 Contact with and (suspected) exposure to COVID-19; Z66 Do not resuscitate; D75.1 Secondary polycythemia; F41.9 Anxiety disorder, unspecified; Z79.899 Other long term (current) drug therapy
CPT/HCPCS: 36415; 71045; 80048; 83605; 83735; 83880; 84100; 84484; 85025; 87040; 87502; 87503; 87811; 93005; 94640; 94760; 96365; 96375; 99285; A4615; A4620; G0378; J0456; J0696; J1644; J2930; J7040

== ENCOUNTER 2023-10-30 10:08 | Emergency (ER) | payer OTHER ==
[~2023-10-30] VITALS: Ht 182.9 cm; Wt 72.0 kg
[~2023-10-30 10:08] MED LIST changes: -LACT1CAP26 PO; -PRED20TA PO; -PRED5TAB PO
[2023-10-30 11:21] LABS: BASOPHILS % (AUTO) 0.6 % (0-1); EOSINOPHILS # (AUTO) 0.4 X10'3 (0-0.9); EOSINOPHILS % (AUTO) 5.3 % (0-6); HEMATOCRIT 52.3 % (42.0-52.0); HEMOGLOBIN 17.8 g/dl (14.0-17.9); LYMPHOCYTES # (AUTO) 1.9 X10'3 (1.1-4.8); LYMPHOCYTES % (AUTO) 25.6 % (21-51); MEAN CORPUSCULAR HEMOGLOBIN 32.5 PG (27.0-31.0); MEAN CORPUSCULAR HGB CONC 33.9 g/dL (33.0-36.5); MEAN CORPUSCULAR VOLUME 95.9 FL (78-98); MEAN PLATELET VOLUME 9.6 FL (7.4-10.4); MONOCYTES # (AUTO) 0.8 X10'3 (0-0.9); NEUTROPHILS # (AUTO) 4.2 X10'3 (1.8-7.7); NEUTROPHILS % (AUTO) 57.5 % (42-75); PLATELET COUNT 154 X10'3 (140-440); RED BLOOD COUNT 5.46 X10'6 (4.70-6.10); RED CELL DISTRIBUTION WIDTH 13.7 % (11.5-14.5); WHITE BLOOD COUNT 7.3 X10'3 (4.5-11.0)
[2023-10-30] MEDS: ipratropium 0.5 MG/2.5ML nebule IH ONE (11:51)
[2023-10-30 11:52] VITALS: PULSE 94; RESP 16; O2SAT 93
[2023-10-30] MEDS: albuterol 2.5 MG/3 ML nebule CONTNEB PRN (11:52)
[2023-10-30] MEDS: methylPREDNISolone sod succ 125mg/2ml vial IV ONE (12:03)
[2023-10-30] MEDS: normal saline 1000ML IV soln IVB ONE (12:03)
[2023-10-30 12:15] LABS: ALBUMIN 3.7 G/DL (3.4-5.0); ANION GAP 8 (8-16); BLOOD UREA NITROGEN 13 MG/DL (7-18); BUN/CREATININE RATIO 19.1 (10.0-20.0); CALCIUM 8.9 MG/DL (8.5-10.1); CHLORIDE 108 MMOL/L (99-107); CREATININE 0.68 MG/DL (0.60-1.10); GLUCOSE 91 MG/DL (70-104); POTASSIUM 4.2 MMOL/L (3.5-5.1); PRO BRAIN NATRIURETIC PEPTIDE 96 PG/ML (0-125); SODIUM 145 MMOL/L (135-145); TOTAL CARBON DIOXIDE 29.4 MMOL/L (24-32); eCRCL 113 ML/MIN; eGFR > 90 ML/MIN
[2023-10-30 13:16] VITALS: PULSE 101; RESP 20; O2SAT 98
[2023-10-30] MEDS ORDERED: PRED20TA PO (13:49)
[2023-10-30 14:39] VITALS: PULSE 101; RESP 24; O2SAT 90
[2023-10-30 15:28] VITALS: PULSE 105; RESP 18; O2SAT 98
[2023-10-30 16:15] VITALS: BP_DIAS 86
[2023-10-30] MEDS ORDERED: DEC4T PO (16:29)
[2023-10-30] MEDS ORDERED: CEPH250T PO (16:29)
[2023-10-30 16:54] VITALS: BP_SYST 153; PULSE 110; RESP 21; TEMP 98.2; O2SAT 92
== END 2023-10-30 16:56 | disposition home or self-care (01) ==
LOC: ER 10:08
DX: J44.1 Chronic obstructive pulmonary disease with (acute) exacerbation (principal); R06.02 Shortness of breath; F17.200 Nicotine dependence, unspecified, uncomplicated; Z79.899 Other long term (current) drug therapy
CPT/HCPCS: 36415; 71045; 80048; 83880; 84484; 85025; 93005; 94644; 96374; 99285; J2919; J7030; 94640; 94760